=== PATIENT | male | born 1930 | race Caucasian/White ===

== ENCOUNTER 2018-01-14 10:22 | Inpatient (IN) | payer MEDICARE, OTHER ==
[2018-01-14] MEDS ORDERED: Nitroglycerin 2% Ointment 1 INCH/1 GM Packet ONE (12:35)
[2018-01-14 13:03] LABS: Troponin I 0.021 ng/mL (< 0.028)
[2018-01-14] MEDS ORDERED: Acetaminophen 650 MG Suppository PR PRN (13:16)
[2018-01-14] MEDS ORDERED: Bisacodyl 5 MG TAB PO PRN (13:16)
[2018-01-14] MEDS ORDERED: Acetaminophen 325 MG TAB PO PRN (13:16)
--- NOTE | 2018-01-14 14:16 | HP ---
PRIMARY CARE PROVIDER: Jatinder Calles M.D. CHIEF COMPLAINT: Chest pain. HISTORY OF PRESENT ILLNESS: Mr. Alicia is a pleasant 87-year-old gentleman who was seen at [facility] on 01/14/2018 following transfer from emergency room at [facility]. He reports that he woke up around 2:30 a.m. with chest discomfort. He subsequently fell asleep. He woke up again around 6:00 a.m. He reports that he had the chest pain ongoing. He therefore presente d at [facility]. In terms of the pain, he describes it as retrosternal, dull, worse with deep breathing, 4-5/10, accom panied by a sensation of sore throat, not accompanied by lightheadedness, nausea, vomiting or shortne ss of breath. He denies any fevers or chills. In the emergency room at [facility], he received 4 baby aspirin tablets as well as nitroglycerin with relief of pain. He cannot recall any aggravating factors for the pain. REVIEW OF SYSTEMS: All other systems reviewed and found to be negative. PAST MEDICAL HISTORY: Macular degeneration of the left eye, dyslipidemia, benign prostate hypertroph y. Please note that patient was admitted at this facility in 03/2015, at which time he was found to have bradycardia. He was recommended followup with Cardiology service as outpatient, but it appears that he did not follow up. PAST SURGICAL HISTORY: Bilateral knee replacement and hemorrhoid surgery. SOCIAL HISTORY: The patient drinks 1-2 glasses of wine every night. He denies tobacco use or recrea tional drug use. FAMILY HISTORY: Sister of lung cancer at age 82. Mother had stroke, breast cancer and dementia and at age 86. CODE STATUS: I discussed his code status. He is DNR. ALLERGIES: PENICILLIN. CURRENT MEDICATIONS: Zocor 20 mg daily, Flomax 0.4 mg daily, aspirin 81 mg daily, PreserVision AREDS 1 tablet daily. PHYSICAL EXAMINATION: GENERAL: Mr. Alicia is awake and alert, not in acute distress. VITAL SIGNS: Blood pressure is 132/64, pulse 55, respiratory rate 13, and oxygen saturation 93% on r oom air. He is afebrile. EYES: No scleral icterus. No conjunctival pallor. ENT: Moist mucosal membranes, no oropharyngeal erythema or exudates. NECK: Supple, nontender, trachea is midline. RESPIRATORY: Accessory muscles of breathing are not active. Chest wall movements are symmetric bila terally. Lungs are clear to auscultation without wheeze, rhonchi or crepitations. CARDIOVASCULAR: S1 and S2 are heard, bradycardic and regular. Peripheral pulses palpable. No carot id bruit, no pericardial rub. ABDOMEN: Soft, nontender, bowel sounds are heard, no hepatomegaly, no splenomegaly. NEUROLOGIC: Cranial nerves II-XII intact. Deep tendon reflexes are 2+. SKIN: No rashes or subcutaneous nodules. MUSCULOSKELETAL: Power is 5/5 in all 4 extremities. LYMPHATIC: No cervical lymphadenopathy. PSYCHIATRIC: Normal mood, normal affect, patient is oriented to person, place, and time. LABORATORY DATA: Mr. Alicia' labs and investigations were reviewed. I reviewed his electrocardiogr am, which shows a normal sinus rhythm with second degree type 2 AV block. I also reviewed his chest x-ray, which does not show any pulmonary infiltrates. He has normal electrolytes, normal blood urea nitrogen, normal creatinine, elevated total bilirubin of 2.5, otherwise unremarkable liver profile, t roponin I normal at 0.014, normal white count, normal hemoglobin, normal platelet count, normal D-dim er of 0.33 and a normal calcium level. ASSESSMENT AND PLAN: Mr. Alicia is a pleasant 87-year-old gentleman who was seen at [facility] on 01/14/2018. His problem list includes: 1. Chest pain: Etiology is unclear. Mr. 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 2. Atrioventricular block: He is presenting with second degree type 2 atrioventricular block. He w ill be monitored on telemetry. Cardiology service will be consulted for opinion and help with manage ment. He may need a pacemaker. 3. Benign prostate hypertrophy: Appears stable, continue Flomax. 4. Dyslipidemia: Continue Zocor. 5. Mr. Alicia also has hyperbilirubinemia, etiology unclear. He has, otherwise, normal liver profi le. We will recheck his bilirubin with morning labs. If still elevated, may need further workup as outpatient. Many thanks for allowing me to participate in your patient's care. Please feel free to contact me wi th any questions or concerns. LEVEL OF RISK: High. LEVEL OF COMPLEXITY: High.
[2018-01-14 15:52] LABS: Troponin I 0.016 ng/mL (< 0.028)
[2018-01-14 18:40] VITALS: BMI 30.9
[2018-01-14 20:36] LABS: Troponin I Less than 0.010 ng/mL (< 0.028)
[2018-01-14] MEDS ORDERED: Simvastatin 20 MG TAB PO SCH (21:00)
[2018-01-15 05:38] LABS: #Eosinphils 0.1 thou/uL (0.0-0.7); #Lymphocytes 2.1 thou/uL (1.20-3.40); #Monocytes 0.8 thou/uL (0.11-0.59); #Neutrophils 6.1 thou/uL (1.40-6.50); %Basophils 0.2 % (0.0-1.0); %Eosinophils 0.7 % (0.0-10.0); %Lymphocytes 22.9 % (21.0-51.0); %Monocytes 8.4 % (0.0-10.0); %Neutrophils 67.8 % (42.0-75.0); Hemoglobin 13.5 g/dL (14.0-18.0); Mean Corpuscular Hemoglobin 32.1 pg (27.0-31.0); Mean Corpuscular Volume 91.8 fL (78.0-98.0); Mean Platelet Volume 9.2 fL (7.4-10.4); Platelet Count 166 thou/uL (130-400); RBC Distribution Width 12.4 % (11.5-14.5); Red Blood Cell (RBC) Count 4.21 mill/uL (4.70-6.10)
[2018-01-15 05:46] LABS: ALT (SGPT) 15 U/L (8-55); AST (SGOT) 14 U/L (5-34); Albumin 3.7 g/dL (3.4-4.8); Alkaline Phosphatase 70 U/L (40-150); Anion Gap 11 mmol/L (10-20); BUN (Urea Nitrogen) 12 mg/dL (8.4-25.7); Bilirubin, Total 3.6 mg/dL (0.2-1.2); Calc. Creatinine Clearance 87 mL/min (70-130); Calcium 8.9 mg/dL (7.8-10.44); Carbon Dioxide 27 mmol/L (23-31); Cardiac Risk 2.4 (Less than 4.5); Chloride 105 mmol/L (98-107); Cholesterol 92 mg/dl (< 200 Desired); Estimated GFR-MDRD Greater than 90; Globulin 2.4 g/dL (2.4-3.5); Glucose 113 mg/dL (83-110); HDL Cholesterol 38 mg/dL (>60 Neg Risk); LDL Cholesterol, Calculated 35 mg/dL; Potassium 4.2 mmol/L (3.5-5.1); Protein, Total 6.1 g/dL (5.8-8.1); Sodium 139 mmol/L (136-145); Triglycerides 96 mg/dL (Less than 150)
--- NOTE | 2018-01-15 06:08 | CON ---
DATE OF CONSULTATION: 01/14/2018 HISTORY OF PRESENT ILLNESS: Ki Alicia is an 87-year-old white male who was seen by Dr.Todd Davis once in 03/2015 for asymptomatic bradycardia. Echocardiogram at that time revealed ejection fraction of 55%-60%. He has not required any followup. He then reports that he awoke this morning at 2:30 a.m. with chest pressure that seemed to be worse with taking a breath in. He denied any shortness of breath, nausea, vomiting or diaphoresis with this. The pain lasted for 3 or 4 hours. He ultimately went to the [facility]. He was given 4 chewable aspirins and nitro paste was applied. He states that the pain then resolved. He denies any SOB, cough, fever, or chills. He denies any recent heavy lifting. The patient denies ever having any lightheadedness, dizziness, or syncope. PAST MEDICAL HISTORY: 1. Dyslipidemia. 2. Benign prostatic hypertrophy. 3. Macular degeneration. OPERATIONS: Hemorrhoid surgery, bilateral knee replacement. MEDICATIONS: Aspirin 81 daily, simvastatin 20 at bedtime, Flomax 0.4 daily, eye vitamins. ALLERGIES: PENICILLIN. SOCIAL HISTORY: He has one to two glasses of wine every night. He does not smoke. FAMILY HISTORY: Negative for coronary artery disease. REVIEW OF SYSTEMS: Twelve-point review of systems was otherwise unremarkable. PHYSICAL EXAMINATION: VITAL SIGNS: Blood pressure 113/52, pulse of 70. HEENT: PERRL. NECK: Supple. LUNGS: Chest is clear. CARDIAC: S1 and S2 are normal without any S3, S4 or murmurs. Carotid upstrokes normal, without bruits. ABDOMEN: Normal bowel sounds, without tenderness, organomegaly. EXTREMITIES: Revealed no clubbing, cyanosis, or edema. NEUROLOGIC: Grossly intact. MUSCULOSKELETAL: Revealed no palpable chest wall tenderness. LABORATORY AND DIAGNOSTIC DATA: EKG reveals sinus rhythm with type 1 second degree AV block and incomplete left bundle branch block. Cardiac enzymes x3 are normal, even though he had 3-4 hours of chest pain. Blood work from [facility] revealed sodium 139, potassium 4.0, chloride 103, carbon dioxide 26, BUN 12.3, creatinine 0.8, white count 11,100, hemoglobin 15.2, hematocrit 44.1. IMPRESSION: 1. Noncardiac chest pain - pleuritic chest discomfort with negative cardiac enzymes despite 3-4 hours of continual chest pain. 2. Asymptomatic sinus bradycardia and asymptomatic Wenckebach. 3. Hypercholesterolemia. 4. Benign prostatic hypertrophy. PLAN: Echocardiogram will be performed. The patient will have fasting lipid profile performed in the morning. Mr. Alicia'jose chest pain does not appear to be cardiac in nature. He does have type 1 second degree AV block, but this appears to be asymptomatic and at the present time, no pacemaker is indicated. We will continue to follow the patient with you. LORENA
[2018-01-15] MEDS: Aspirin 81 mg Enteric Coated Tablet PO SCH (10:59)
--- NOTE | 2018-01-15 15:33 | PDOC.PN ---
- Subjective Encounter Start Date: 01/15/18 Encounter Start Time: 15:31 Mr. Alicia was seen today in follow-up of Chest pain. He says he feels fine today. He denies chest pain. - Objective Resuscitation Status: Resuscitation Status DNR:Do Not Resuscitate MAR Reviewed: Yes Vital Signs & Weight: Vital Signs (12 hours) Temp Pulse Resp BP Pulse Ox 01/15/18 11:41 98.0 F 66 20 118/55 L 95 01/15/18 08:00 97.4 F L 64 20 140/72 95 01/15/18 04:41 97.3 F L 61 19 106/44 L 93 L Weight Weight 201 lb 6.4 oz I&O: 01/14/18 01/15/18 01/16/18 06:59 06:59 06:59 Intake Total 240 Output Total 600 Balance -360 Result Diagrams: 01/15/18 04:50 01/15/18 04:50 Phys Exam - Physical Examination HEENT: PERRLA Respiratory: no wheezing, no rales, no rhonchi, clear to auscultation bilateral Cardiovascular: RRR, no significant murmur, no rub Gastrointestinal: soft, non-tender, no distention, positive bowel sounds Musculoskeletal: no edema Dx/Plan (1) Chest pain Code(s): R07.9 - CHEST PAIN, UNSPECIFIED Status: Acute (2) Bradycardia Code(s): R00.1 - BRADYCARDIA, UNSPECIFIED Status: Acute (3) Second degree AV block Code(s): I44.1 - ATRIOVENTRICULAR BLOCK, SECOND DEGREE Status: Acute (4) BPH (benign prostatic hyperplasia) Code(s): N40.0 - BENIGN PROSTATIC HYPERPLASIA WITHOUT LOWER URINRY TRACT SYMP Status: Chronic - Plan * Chest pain- ? etiology- work-up is in progress * Bradycardia- Echo is pending. His heart rate has improved * BPH- stable * .
[2018-01-15] MEDS ORDERED: Sodium Chloride 0.9% 1,000 ML IV SCH (19:15)
[2018-01-15] MEDS ORDERED: Communication Order-Pharmacy FS SCH (19:15)
[2018-01-15] MEDS: Atorvastatin Calcium 10 MG TAB PO SCH (20:45)
[2018-01-16] MEDS: Sodium Chloride 0.9% 1,000 ML IV SCH ×2 (05:48→14:20)
[2018-01-16] MEDS: Aspirin 81 mg Enteric Coated Tablet PO SCH (05:48)
[2018-01-16] MEDS ORDERED: Heparin 10,000 UNITS/1 ML VIAL ONE (07:19)
[2018-01-16] MEDS ORDERED: Fentanyl 100 MCG/2 ML VIAL ONE ×2 (07:19→16:23)
[2018-01-16] MEDS ORDERED: Midazolam HCl 2 mg/2 ml Vial ONE ×2 (07:19→16:23)
[2018-01-16] MEDS ORDERED: Atropine Sulfate 1 mg/1 ml Vial ONE (07:41)
[2018-01-16] MEDS ORDERED: Protamine Sulfate 50 MG/5 ML VIAL ONE (07:49)
[2018-01-16] MEDS ORDERED: traMADol HCl 50 MG TAB PO PRN (08:02)
[2018-01-16] MEDS ORDERED: Acetaminophen/Codeine 30-300mg Tablet PO PRN ×2 (08:02)
[2018-01-16] MEDS ORDERED: Nitroglycerin 0.4 MG TAB (25 Tab Bottle) SL PRN (08:02)
[2018-01-16] MEDS ORDERED: Sodium Chloride 0.9% 200 ML IV PRN (08:15)
[2018-01-16] MEDS ORDERED: Sodium Chloride 0.9% 1,000 ML IV SCH (08:15)
--- NOTE | 2018-01-16 10:25 | PDOC.PN ---
- Subjective Encounter Start Date: 01/16/18 Encounter Start Time: 10:23 Mr. Alicia was seen today in follow-up of symptomatic bradycardia. He is post cardiac cath. He denies having any chest pain, or dyspnea. - Objective Resuscitation Status: Resuscitation Status FULL:Full Resuscitation MAR Reviewed: Yes Vital Signs & Weight: Vital Signs (12 hours) Temp Pulse Resp BP Pulse Ox 01/16/18 08:10 97.1 F L 51 L 19 99 01/16/18 04:00 97.1 F L 51 L 19 116/47 L 93 L 01/16/18 00:00 97.8 F 51 L 20 143/52 H 93 L Weight Weight 201 lb 6.4 oz I&O: 01/15/18 01/16/18 01/17/18 06:59 06:59 06:59 Intake Total 240 Output Total 600 500 Balance -360 -500 Result Diagrams: 01/15/18 04:50 01/15/18 04:50 Phys Exam - Physical Examination HEENT: PERRLA, sclera anicteric Respiratory: no wheezing, no rales, no rhonchi, clear to auscultation bilateral Cardiovascular: no significant murmur, no rub heart rate is slow no gallop, Gastrointestinal: soft, non-tender, no distention, positive bowel sounds Musculoskeletal: no edema, pulses present Dx/Plan (1) Bradycardia Code(s): R00.1 - BRADYCARDIA, UNSPECIFIED Status: Acute (2) Second degree AV block Code(s): I44.1 - ATRIOVENTRICULAR BLOCK, SECOND DEGREE Status: Acute (3) BPH (benign prostatic hyperplasia) Code(s): N40.0 - BENIGN PROSTATIC HYPERPLASIA WITHOUT LOWER URINRY TRACT SYMP Status: Chronic (4) Chest pain Code(s): R07.9 - CHEST PAIN, UNSPECIFIED Status: Acute (5) Chronic systolic congestive heart failure, NYHA class 1 Code(s): I50.22 - CHRONIC SYSTOLIC (CONGESTIVE) HEART FAILURE Status: Acute - Plan * Bradycardia- symptomatic- Patient has been evaluated by EP, and plan is to place a Bivent. ICD * Chronic systolic heart failure- Newly detected- this appears to be compensated, will likely need a low dose NICHOLAS-I if tolerated after his procedure * BPH- stable * .
[2018-01-16] MEDS ORDERED: Iopamidol 370 76% 100 ML VIAL ONE (11:44)
[2018-01-16] MEDS ORDERED: Iopamidol 370 76% 50 ML VIAL FS ONE (11:44)
[2018-01-16] MEDS ORDERED: PROPOFOL 60 ML ONE (16:23)
[2018-01-16] MEDS ORDERED: Lidocaine 1% (PF) 30 ML VIAL ONE (16:30)
[2018-01-16] MEDS ORDERED: Clindamycin/D5W 600 mg/50 ml Premix Bag ONE (16:30)
[2018-01-16] MEDS ORDERED: Ondansetron HCl/PF 4 MG/2 ML Vial IVP PRN (18:21)
[2018-01-16] MEDS ORDERED: Promethazine HCl 25 MG/ML VIAL IM PRN (18:21)
[2018-01-16] MEDS ORDERED: Promethazine HCl 25 MG/ML VIAL SLOW IVP PRN (18:21)
--- NOTE | 2018-01-16 19:07 | CON ---
DATE OF CONSULTATION: 01/16/2018. ELECTROPHYSIOLOGY CONSULTATION REPORT REFERRING PHYSICIAN: Dr. Miguel Tejada. I am seeing Mr. Alicia at our [facility] step down ICU as an electrophysiology cardiology clinical consultant. His problems are: 1. Newly found nonischemic cardiomyopathy with severe left ventricular dysfunction. A. 2D echo from 01/15/2018 demonstrates 25%-30% mild MR, mild TR noted. B. Left heart catheterization from 01/16/2018 shows mild coronary arteries only , but severe left ventricular dysfunction. 2. Chronic bradycardia with episodes of 2:1 AV block also episodes of Mobitz type 1 second degree AV block also seen without syncope. 3. Chest pain prompting left heart catheterization today. 4. No prior history of heart attacks. 5. Risk factors including dyslipidemia. ALLERGIES: PENICILLIN. MEDICATIONS: At home include Zocor, Flomax, aspirin, and PreserVision tablets. SUBJECTIVE: Mr. Alicia was transferred from a [facility] ER with chest discomfort starting at 2:30 a.m., but persisting at 6:00 a.m. he woke up again, has been ongoing, came to the ER. He was evaluated and had his troponin levels were 0.014. He underwent a heart catheterization by Dr. Tejada today. He also noted to have marked bradycardia, although not markedly symptomatic in a supine fashion. He had no PND, orthopnea. No lower extremity, no fever, chills, cough. unremarkable. PAST MEDICAL HISTORY: As above. Patient had prior history of echocardiogram in 04/2015 at which point the LVEF of 55%-60%, also has been seen by Dr. Bladimir Davis at that point and with pausing up to 2.6 seconds, mostly sleeping hours. He does carry history of macular degeneration, dyslipidemia. Also has history of BPH. PAST SURGICAL HISTORY: Significant for right knee replacement and hemorrhoids. Also, questionable history of a TIA at that point. 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 FAMILY HISTORY: Noncontributory limited. OBJECTIVE DATA: VITAL SIGNS: Blood pressure 154/57, heart rate 40, respirations 18, temperature 96.7 degrees Fahrenheit. GENERAL: He is alert and oriented elderly man in no apparent distress. NECK: Supple. Jugular veins not distended. CHEST: Coarse without crackles. CARDIAC: Heart sounds are regular to rate and rhythm, but bradycardic. No murmur or gallop. ABDOMEN: Benign. Bowel sounds positive. EXTREMITIES: Lower extremities without edema, clubbing or cyanosis. Pulses are adequate. NEUROLOGIC: Patient nonfocal. MUSCULOSKELETAL: No joint swelling or deformities. SKIN: Without rash. DATABASE: Telemetry strips and EKGs reviewed revealing sinus rhythm with Mobitz type 1 AV block, also episodic 2:1 AV blocks are seen with heart rate in the 30s. LABORATORY DATA: White blood cell count 9, hemoglobin 13.5, platelet count is 166. Sodium 128, potassium 4.2, BUN is 12, creatinine 0.75. Troponins are 0.021, 0.016 and 0.01 consecutively. BNP is 121. ASSESSMENT AND PLAN: Mr. Ambriz is a pleasant 87-year-old gentleman with newly found cardiomyopathy. His LVEF is severely depressed. Also, of note, he has got resting bradycardia, which now worsened with heart rates in the 30s. He has chest pains, and which in view of his non-occlusive CAD, possibly provoked by underperfusion with severe bradycardia. Also, I am suspecting the AV block might contribute to his heart failure and possibly even to the LV dysfunction as well. As I discussed with Mr. Carbajal, I think it is very reasonable to consider BIV pacing in this gentleman, hence he will likely ventricular paced all the time. We also discussed the role of a defibrillator in his condition. Pros and cons of a defibrillator including consideration to getting his advanced age, were all discussed. Even though the unknown duration of his cardiomyopathy, Imp;lanting a BIV ICD as opposed to a BiV pacemaker should be made to avoid reoperations in the future. He prefers a biventricular ICD over BiV pacemaker at this time. Again, risks and benefits of the ICD implantation was detailed. He understands and willing to proceed. We will schedule him in near date. Thank you again for allowing me to participate in the care of this patient. LORENA
[2018-01-16] MEDS: Atorvastatin Calcium 10 MG TAB PO SCH (20:14)
[2018-01-16] MEDS ORDERED: Clindamycin 150 MG CAP PO SCH (23:15)
[2018-01-17] MEDS: Sodium Chloride 0.9% 1,000 ML IV SCH ×3 (02:03→15:28)
[2018-01-17] MEDS ORDERED: Carvedilol 3.125 MG TAB PO SCH (08:00)
--- NOTE | 2018-01-17 08:52 | RAD ---
PORTABLE CHEST 1 VIEW: DATE: 01/17/18. TIME: 4:01 a.m. HISTORY: Pacemaker placement. FINDINGS/IMPRESSION: There is a left-sided pacing device. The heart size is mildly enlarged. The lungs are well expanded without lobar consolidation, pneumothoraces, or pleural effusions. POS: ANUEL
[2018-01-17] MEDS ORDERED: Lisinopril 2.5 MG TAB PO SCH (09:00)
[2018-01-17] MEDS ORDERED: Furosemide 20 MG TAB PO SCH (09:00)
--- NOTE | 2018-01-17 09:12 | PDOC.PN ---
- Subjective Encounter Start Date: 01/17/18 Encounter Start Time: 09:11 Ms. Ambriz was seen today in follow-up of Bradycardia and 2nd degree AV block. He does not have any complaints. He denies chest pain or shortness of breath, he is not feeling dizzy or lightheaded. - Objective Resuscitation Status: Resuscitation Status FULL:Full Resuscitation MAR Reviewed: Yes Vital Signs & Weight: Vital Signs (12 hours) Temp Pulse Resp BP BP Pulse Ox 01/17/18 07:58 100 01/17/18 07:34 97.6 F 66 20 145/68 H 100 01/17/18 04:07 143/65 H 01/17/18 03:45 98.1 F 65 20 143/65 H 98 01/17/18 00:37 142/57 H 01/16/18 23:53 97.4 F L 62 18 142/57 H 97 Weight Weight 201 lb 1.6 oz I&O: 01/16/18 01/17/18 01/18/18 06:59 06:59 06:59 Intake Total 2241 Output Total 500 1175 Balance -500 1066 Result Diagrams: 01/15/18 04:50 01/15/18 04:50 Phys Exam - Physical Examination HEENT: PERRLA Respiratory: no wheezing, no rhonchi + rales at the left base, right is clear good air movement Cardiovascular: RRR, no significant murmur, no rub no gallop Gastrointestinal: soft, non-tender, no distention, positive bowel sounds Musculoskeletal: no edema, edema present Dx/Plan (1) Bradycardia Code(s): R00.1 - BRADYCARDIA, UNSPECIFIED Status: Acute (2) Second degree AV block Code(s): I44.1 - ATRIOVENTRICULAR BLOCK, SECOND DEGREE Status: Acute (3) BPH (benign prostatic hyperplasia) Code(s): N40.0 - BENIGN PROSTATIC HYPERPLASIA WITHOUT LOWER URINRY TRACT SYMP Status: Chronic (4) Chest pain Code(s): R07.9 - CHEST PAIN, UNSPECIFIED Status: Acute (5) Chronic systolic congestive heart failure, NYHA class 1 Code(s): I50.22 - CHRONIC SYSTOLIC (CONGESTIVE) HEART FAILURE Status: Acute - Plan * Second degree AV block with symptomatic bradycardia- he is s/p BiV AICD * Chronic systolic Heart failure- compensated * BPH- stable * Possible home this evening.
[2018-01-17] MEDS: Aspirin 81 mg Enteric Coated Tablet PO SCH (09:37)
[2018-01-17] MEDS: Clindamycin 150 MG CAP PO SCH ×2 (09:37→15:27)
--- NOTE | 2018-01-17 14:25 | PDOC.CTH ---
Cardiology Progress Note - Subjective EP progress note: Patient seen and evaluated. No new cardiac concerns or complaints today. Denies heart racing, palpitations, chest pain/pressure, dizziness, or passing out. No stroke like symptoms. Minimal tenderness at implant site. - Objective Vital Signs Temp Pulse Resp BP BP Pulse Ox 01/17/18 11:44 97.6 F 72 20 160/70 H 100 01/17/18 09:37 65 01/17/18 07:58 100 01/17/18 07:34 97.6 F 66 20 145/68 H 100 01/17/18 04:07 143/65 H 01/17/18 03:45 98.1 F 65 20 143/65 H 98 Weight 201 lb 1.6 oz 01/16/18 01/17/18 01/18/18 06:59 06:59 06:59 Intake Total 2241 Output Total 500 1175 400 Balance -500 1066 -400 - Physical Examination General/Neuro: alert & oriented x3, NAD Neck: carotid US brisk, no JVD present Lungs: CTA, unlabored respirations Heart: PMI normal, RRR Abdomen: NT/ND, soft Other PE findings: ICD incision CDI, no acute complications - Telemetry Telemetry Rhythm: NSR, CAGE OPERATOR pacing - Labs Result Diagrams: 01/15/18 04:50 01/15/18 04:50 Troponin/CKMB Troponin I Less than 0.010 ng/mL (< 0.028) 01/14/18 19:32 - Assessment/Plan 1. BiV ICD implanted 01.16.18- Site, device check and CXR stable this AM. 2. NICM with severe LV dysfunction 3. Systolic HF EF 25-30% 4. Chronic bradycardia with 2:1 AV block, mobitz 1 5. 2:1 AV block, mobitz type 1 OK for DC by EP. Continue Clindamycin 300mg TID x 7 days post implant. Wound/ device check with [facility] in 10-14 days will be arranged.
[2018-01-17 16:05] VITALS: BP 150/69; TEMP 97.3
--- NOTE | 2018-01-18 03:02 | DIS ---
PRIMARY CARE PHYSICIAN: Jatinder Calles M.D. DATE OF ADMISSION: 01/14/2018 DATE OF DISCHARGE: 01/17/2018 DISCHARGE DISPOSITION: Home. PRIMARY DISCHARGE DIAGNOSES: 1. Second-degree atrioventricular block with symptomatic bradycardia. 2. Chronic systolic heart failure. 3. Benign prostatic hypertrophy. 4. History of macular degeneration. DISCHARGE MEDICATIONS: Include lisinopril 2.5 mg p.o. daily, Lasix 20 mg daily, Cleocin 300 mg t.i.d . for 7 days, carvedilol 3.125 mg twice daily, aspirin 81 mg daily, vitamin A, C, E, and zinc 1 capsu le daily, Flomax 0.4 mg daily, and simvastatin 20 mg at bedtime. PROCEDURES DONE DURING THE ADMISSION: The patient had an echocardiogram and the ejection fraction wa s estimated at 25-30%, left ventricular function was severely depressed. No mention of any significa nt valvular disease. The patient had the placement of a biventricular AICD. CODE STATUS: FULL CODE. ALLERGIES: To PENICILLIN. HOSPITAL COURSE: Mr. Alicia is a pleasant 87-year-old gentleman who presented to the emergency room complaining of chest pain. He also experienced some palpitations as well. His heart rate was appro ximately 30 in the ER, and it was noted that he had second-degree type 2 AV block and Mobitz type 2. He was admitted to the [facility] and Cardiology was consulted. He underwent echocardiogram and which dem onstrated a diminished ejection fraction. This along with the bradycardia prompted an electrophysiol ogical consultation. He was seen by Dr. Cali who recommended placement of a biventricular AICD. The patient had the procedure performed, had an uneventful postoperative course and is being discharged with the addition of lisinopril as well as a low dose beta-corina and to have close followup with va s primary care physician in 1-2 weeks.
== END 2018-01-17 18:06 | disposition home or self-care (01) | DRG 225 ==
LOC: ERS 10:22 → ERHOLD 13:02 → IMCU/EMU 18:15
PROVIDERS: ADMIT Internal Medicine; ATTEND Internal Medicine
PROC: 4A023N7 Measurement of Cardiac Sampling and Pressure, Left Heart, Percutaneous Approach (ICD-10-PCS; principal; 2018-01-16)
PROC: B2111ZZ Fluoroscopy of Multiple Coronary Arteries using Low Osmolar Contrast (ICD-10-PCS; 2018-01-16)
PROC: B2151ZZ Fluoroscopy of Left Heart using Low Osmolar Contrast (ICD-10-PCS; 2018-01-16)
PROC: 0JH609Z Insertion of Cardiac Resynchronization Defibrillator Pulse Generator into Chest Subcutaneous Tissue and Fascia, Open Approach (ICD-10-PCS; 2018-01-16)
PROC: 02HL3KZ Insertion of Defibrillator Lead into Left Ventricle, Percutaneous Approach (ICD-10-PCS; 2018-01-16)
PROC: 02HK3KZ Insertion of Defibrillator Lead into Right Ventricle, Percutaneous Approach (ICD-10-PCS; 2018-01-16)
PROC: 02H63KZ Insertion of Defibrillator Lead into Right Atrium, Percutaneous Approach (ICD-10-PCS; 2018-01-16)
DX: I44.1 Atrioventricular block, second degree (principal); I50.22 Chronic systolic (congestive) heart failure; I25.110 Atherosclerotic heart disease of native coronary artery with unstable angina pectoris; R00.1 Bradycardia, unspecified; N40.0 Benign prostatic hyperplasia without lower urinary tract symptoms; Z66 Do not resuscitate; H35.30 Unspecified macular degeneration; Z96.653 Presence of artificial knee joint, bilateral; E78.5 Hyperlipidemia, unspecified; E80.6 Other disorders of bilirubin metabolism; I42.9 Cardiomyopathy, unspecified; I08.1 Rheumatic disorders of both mitral and tricuspid valves; I44.7 Left bundle-branch block, unspecified
CPT/HCPCS: 33225; 33249; 36005; 36415; 71045; 75820; 80053; 80061; 83880; 84484; 85025; 85347; 93005; 93306; 93458; 99152; 99153; C1769; C1777; C1882; C1898; C1900; J0461; J1644; J2001; J2250; J2704; J2720; J3010; J3490